=== PATIENT | male | born 1985 | race Two or more races ===

== ENCOUNTER 2023-09-09 16:19 | Emergency (ER) | payer OTHER ==
[~2023-09-09] VITALS: Ht 175.3 cm; Wt 77.3 kg
[2023-09-09 17:09] VITALS: TEMP 98.4
[2023-09-09] MEDS: IBUPROFEN 600 MG TABLET PO ONE (17:44)
[2023-09-09 20:30] VITALS: BP 129/67; PULSE 75; RESP 16
== END 2023-09-09 22:13 | disposition home or self-care (01) ==
LOC: EMS 16:27
DX: M20.012 Mallet finger of left finger(s) (principal)
CPT/HCPCS: 99283